=== PATIENT | male | born 1950 | race Caucasian/White ===

== ENCOUNTER 2017-06-17 06:49 | Day surgery (SDC) | payer OTHER ==
[~2017-06-17] VITALS: Ht 177.8 cm; Wt 131.5 kg
[~2017-06-17 06:49] MED LIST: /ESOM40CA; /TAMS4CA; ASPI325T; ASPI81TA63; ASPI81TA83; ASPI81TA85 PO; ATEN50TA2; ATEN50TA2 PO; ATOR40TA75 PO; FENO145T PO; FLOM5CAP PO; GLUC1000; INVO300T PO; JANU100T PO; LIPI10TA; LOPR1TAB6 PO; LOPR1TAB7 PO; METF10004 PO; NEXI40GR PO; NITR0.4S; NITR4TASL SL; PLAV75TA2; RAMI25CA; RAMI5CA PO; TENO50TA
[2017-06-17] MEDS ORDERED: LR 1,000 ML IV SCH ×2 (07:00→13:30)
[2017-06-17] MEDS ORDERED: ROCURONIUM BROMIDE 50 MG/5 ML VIAL/SYRINGE As Ordered ONE ×2 (07:03→11:23)
[2017-06-17] MEDS ORDERED: PROPOFOL 200 MG/20 ML VIAL As Ordered ONE (07:03)
[2017-06-17] MEDS ORDERED: MIDAZOLAM INJ 2 MG/2 ML VIAL (J2250) As Ordered ONE (07:04)
[2017-06-17] MEDS ORDERED: fentaNYL 100 MCG/2 ML INJECTION (J3010) As Ordered ONE (07:04)
[2017-06-17] MEDS ORDERED: LIDOCAINE 2% INJ 100 MG/5 ML SDV (FOR ANES.) As Ordered ONE (07:04)
[2017-06-17] MEDS ORDERED: BACITRACIN OINT 30GM As Ordered ONE (10:57)
[2017-06-17] MEDS ORDERED: ETOMIDATE INJ 20MG/10ML VIAL As Ordered ONE (11:23)
[2017-06-17] MEDS ORDERED: ceFAZolin 2 GM/D5W 50 ML IV BAG (J0690) As Ordered ONE (11:37)
[2017-06-17] MEDS ORDERED: PHENYLephrine HCL 500 MCG/5 ML (100MCG/ML) SYRINGE (J2370) As Ordered ONE (11:57)
[2017-06-17] MEDS ORDERED: HYDROmorphone HCL 2 MG/ML 1ML VIAL (J1170) As Ordered ONE (11:57)
[2017-06-17] MEDS ORDERED: SUGAMMADEX SODIUM 500 MG/5 ML VIAL (BRIDION) As Ordered ONE (12:16)
[2017-06-17] MEDS ORDERED: PERCOCET 5MG/325MG TAB As Ordered ONE (13:01)
[2017-06-17] MEDS ORDERED: MEPERIDINE INJ 25 MG/ML VIAL (J2175) IV PRN (13:30)
[2017-06-17] MEDS ORDERED: ONDANSETRON 4MG/2ML VIAL (J2405) IV PRN (13:30)
[2017-06-17] MEDS ORDERED: fentaNYL 100 MCG/2 ML INJECTION (J3010) IV PRN (13:30)
[2017-06-17] MEDS ORDERED: METOCLOPRAMIDE INJ 10MG/2ML VIAL (J2765) IV PRN (13:30)
[2017-06-17] MEDS ORDERED: PERCOCET 5MG/325MG TAB PO PRN ×3 (13:30)
[2017-06-17 14:15] VITALS: BP 128/74
--- NOTE | 2017-06-18 20:03 | RO ---
DATE OF PROCEDURE: 06/17/2017 PREPROCEDURE DIAGNOSIS: Phimosis. POSTPROCEDURE DIAGNOSIS: Phimosis. PROCEDURE: Circumcision. SURGEON: Dr. Vickey Louis CREW TRAINER: None ANESTHESIA: General. OPERATIVE INDICATIONS: This is a 67-year-old male who has complained of difficulty retracting his foreskin due to worsening phimosis. It was recommended he be brought to the operating room today for the above listed procedure. DESCRIPTION OF PROCEDURE: The patient was brought to the operating room and general anesthesia was induced. Prophylactic antibiotics were infused. He was then placed in the supine position and prepped and draped in the usual sterile fashion. At this point, circumcising incisions were made around the penis with the first one just proximal to the coronal sulcus with the foreskin completely retracted. A second circumcising incision was made on the skin at the level of the coronal sulcus with the foreskin in normal position over the glans. These two circumcising incisions were then connected using Bovie electrocautery. All the foreskin between the two incisions was then removed using Bovie electrocautery. At this point, we checked for hemostasis and any areas of bleeding were controlled with cautery. We then began to reapproximate the skin of the shaft to the glans beginning first with a #3-0 chromic U-stitch at the 6 o'clock position. We then placed several interrupted stitches using #3-0 chromic around the rest of the of the penis until the skin was completely reapproximated to the glans. Once this was done, dressings were applied, beginning first with bacitracin ointment around the incision line and then a Rachel dressing, followed by a Coban dressing. Once dressings were placed, this marked the conclusion of the procedure. The patient was then awakened from anesthesia and transported to the recovery room in stable condition. Estimated blood loss was 5 mL. Complications: None. Specimens: Foreskin. Plan: The patient will take the dressings off in 2 days. He will followup with me in the clinic in approximately 3 weeks. NAT
== END 2017-06-17 14:30 | disposition home or self-care (01) ==
LOC: M SDC 06:49
PROVIDERS: ATTEND Urology
DX: N47.1 Phimosis (principal); I20.9 Angina pectoris, unspecified; I10 Essential (primary) hypertension; E78.5 Hyperlipidemia, unspecified; K21.9 Gastro-esophageal reflux disease without esophagitis; E11.9 Type 2 diabetes mellitus without complications; Z79.82 Long term (current) use of aspirin; I25.2 Old myocardial infarction; I25.10 Atherosclerotic heart disease of native coronary artery without angina pectoris; Z79.899 Other long term (current) drug therapy; Z87.891 Personal history of nicotine dependence; Z92.3 Personal history of irradiation; Z85.46 Personal history of malignant neoplasm of prostate
CPT/HCPCS: 54161; 88304; J0690; J1170; J2250; J2370; J3010

== ENCOUNTER → 2017-07-08 | Outpatient (REF) | payer OTHER | LOC: M SMT 13:14 | PROVIDERS: ATTEND Urology | DX: R30.0 Dysuria (principal) ==

== ENCOUNTER 2022-01-14 11:33 | Emergency (ER) | payer OTHER ==
[~2022-01-14] VITALS: Ht 177.8 cm; Wt 55.9 kg
[~2022-01-14 11:33] MED LIST changes: -/ESOM40CA; -/TAMS4CA; +ASPI81TA26 PO; -ASPI81TA85 PO; +ASPI81TA86 PO; +ATOR80TA59; +BASA100I SC; +CETI-24; +DULA3PEN; +ENTR1TAB7; -FENO145T PO; +FENO145T7 PO; +FLOM0.4C39; +FLOM0.4C39 PO; -FLOM5CAP PO; +FLON1SPR; +FLUT1BLS8; +GLIP10TA18; +INCR1INH; +METO1TAB33; +NEXI1CAP3; +PANT40TA29; +RAMI1CAP24 PO; -RAMI5CA PO; +SYMB16INH; +VENTAER INH
[2022-01-14 12:25] LABS: BASO # 0.1 10^3/uL (0.0-0.2); BASO % 0.7 % (0.0-1.0); EOS % 0.3 % (0.0-3.0); HEMATOCRIT 45.4 % (42.0-52.0); HEMOGLOBIN 13.6 g/dl (13.5-17.5); LYMPH % 12.9 % (24.0-44.0); MEAN CORPUSCULAR HEMOGLOBIN 22.5 pg (27.0-33.0); MEAN CORPUSCULAR VOLUME 75.2 fl (80.0-96.0); MONO # 0.4 10^3/uL (0.0-0.8); MONO % 5.7 % (2.0-8.0); NEUTROPHILS # 5.9 10^3/uL (1.5-8.5); NEUTROPHILS % 79.9 % (36.0-66.0); PLATELET COUNT, AUTOMATED 314 10^3/uL (150-450); RED BLOOD COUNT 6.04 10^6/uL (4.30-6.10); WHITE BLOOD COUNT 7.4 10^3/uL (4.0-10.0)
[2022-01-14 12:40] LABS: ABG BASE EXCESS -4.5 (-2.0-2.0); ABG HCO3 18.9 MEQ/L (22.0-26.0); ABG O2 SATURATION 92.7 % (95.0-99.0); ABG PARTIAL PRESSURE CO2 30.6 mmHg (35.0-45.0); ABG PARTIAL PRESSURE O2 65.8 mmHg (75.0-100.0); ABG STANDARD HCO3 20.7 MEQ/L (22.0-26.0); ABG TOTAL CO2 19.9 MEQ/L (23.0-31.0); ABG pH (ARTERIAL) 7.409 UNITS (7.350-7.450)
[2022-01-14] MEDS ORDERED: FUROSEMIDE 40MG/4ML VIAL (J1940) IV ONE (12:50)
[2022-01-14 13:01] LABS: CK-MB VALUE MASS 3.6 NG/ML (<3.6); MB/CK RELATIVE INDEX 3.3 (< OR =4)
[2022-01-14 13:08] LABS: ALT/SGPT 22 U/L (12-78); BILIRUBIN,DIRECT 0.2 MG/DL (0.0-0.2); BILIRUBIN,TOTAL 0.6 MG/DL (0.2-1.0); BLOOD UREA NITROGEN 26 MG/DL (7-18); CALCIUM LEVEL 8.7 MG/DL (8.8-10.2); CARBON DIOXIDE LEVEL 24 MEQ/L (21-32); CHLORIDE LEVEL 111 MEQ/L (98-107); GLOMERULAR FILTRATION RATE > 60.0 (>42); GLUCOSE, FASTING 71 MG/DL (70-100); NT-PRO BNP 6365 PG/ML (<125); POTASSIUM SERUM 3.9 MEQ/L (3.5-5.1); SODIUM LEVEL 142 MEQ/L (136-145); TOTAL PROTEIN 6.2 GM/DL (6.4-8.2)
[2022-01-14 13:53] LABS: CK-MB VALUE MASS 3.2 NG/ML (<3.6); MB/CK RELATIVE INDEX 3.14 (< OR =4)
[2022-01-14] MEDS ORDERED: ASPIRIN 81 MG CHEW TABLET PO ONE (14:05)
[2022-01-14 15:52] VITALS: BP 126/80
== END 2022-01-14 15:55 | disposition short-term general hospital (02) ==
LOC: EDBD 11:33 → M ED 11:33
DX: I21.4 Non-ST elevation (NSTEMI) myocardial infarction (principal); G47.33 Obstructive sleep apnea (adult) (pediatric); E11.9 Type 2 diabetes mellitus without complications; I10 Essential (primary) hypertension; Z87.891 Personal history of nicotine dependence
CPT/HCPCS: 36600; 71045; 80047; 80048; 80076; 82550; 82553; 82803; 83880; 84443; 84484; 85025; 87040; 87486; 87581; 87633; 87798; 93005; 93041; 96374; 99285; J1940

== ENCOUNTER → 2022-06-19 | Outpatient (CLI) | payer OTHER ==
[~2022-06-19] MED LIST changes: +AMIO200T49; +BIMA01SOL; +BISO5TAB14; +CEPH500C PO; +CLOP75TA2; +ELIQ5TAB; +ERGO500029; +SPIR-10; +SYNT25TA
== END ==
LOC: M RAD 09:33
PROVIDERS: ATTEND Physician Assistant
DX: R91.1 Solitary pulmonary nodule (principal); J90 Pleural effusion, not elsewhere classified; Z87.891 Personal history of nicotine dependence

== ENCOUNTER 2022-06-21 09:35 | Emergency (ER) | payer OTHER ==
[~2022-06-21] VITALS: Ht 177.8 cm; Wt 107.0 kg
[~2022-06-21 09:35] MED LIST changes: -AMIO200T49; -BIMA01SOL; -BISO5TAB14; -CEPH500C PO; -CLOP75TA2; -ELIQ5TAB; -ERGO500029; -SPIR-10; -SYNT25TA
[2022-06-21] MEDS ORDERED: BIMA01SOL (10:03)
[2022-06-21] MEDS ORDERED: BISO5TAB14 (10:03)
[2022-06-21] MEDS ORDERED: SPIR-10 (10:03)
[2022-06-21] MEDS ORDERED: ELIQ5TAB (10:03)
[2022-06-21] MEDS ORDERED: CLOP75TA2 (10:03)
[2022-06-21] MEDS ORDERED: ERGO500029 (10:03)
[2022-06-21] MEDS ORDERED: AMIO200T49 (10:03)
[2022-06-21] MEDS ORDERED: SYNT25TA (10:03)
[2022-06-21 12:03] LABS: BACTERIA, URINE SMALL AMOUNT; HYALINE CAST, URINE NONE SEEN /lpf (0-1); RBC, URINE TNTC /hpf (0-3); SQUAMOUS EPITHELIAL CELL URINE SMALL AMOUNT /hpf (SMALL AMT)
[2022-06-21 12:28] LABS: BASO # 0.1 10^3/uL (0.0-0.2); BASO % 0.4 % (0.0-1.0); EOS % 0.4 % (0.0-3.0); HEMATOCRIT 44.4 % (42.0-52.0); HEMOGLOBIN 13.9 g/dl (13.5-17.5); LYMPH # 0.9 10^3/uL (1.5-5.0); LYMPH % 8.3 % (24.0-44.0); MEAN CORPUSCULAR HEMOGLOBIN 28.4 pg (27.0-33.0); MEAN CORPUSCULAR HGB CONC 31.3 g/dl (32.0-36.5); MEAN CORPUSCULAR VOLUME 90.6 fl (80.0-96.0); MONO # 0.6 10^3/uL (0.0-0.8); MONO % 5.2 % (2.0-8.0); NEUTROPHILS # 9.5 10^3/uL (1.5-8.5); NEUTROPHILS % 85.1 % (36.0-66.0); PLATELET COUNT, AUTOMATED 255 10^3/uL (150-450); WHITE BLOOD COUNT 11.2 10^3/uL (4.0-10.0)
[2022-06-21 12:40] LABS: INR 1.34
[2022-06-21 12:41] LABS: PARTIAL THROMBOPLASTIN TIME 36.6 SECONDS (25.9-37.0)
[2022-06-21] MEDS ORDERED: ISOVUE-370 76% 100ML VIAL As Ordered ONE (12:43)
[2022-06-21 13:04] LABS: ALBUMIN 3.2 GM/DL (3.2-5.2); BILIRUBIN,DIRECT 0.2 MG/DL (0.0-0.2); BILIRUBIN,TOTAL 0.7 MG/DL (0.2-1.0); TOTAL PROTEIN 6.6 GM/DL (6.4-8.2)
[2022-06-21] MEDS ORDERED: CEPH500C PO (14:06)
[2022-06-21 14:32] VITALS: BP 98/55
== END 2022-06-21 14:33 | disposition home or self-care (01) ==
LOC: M ED 11:38
DX: R31.9 Hematuria, unspecified (principal); I48.91 Unspecified atrial fibrillation; I25.2 Old myocardial infarction; N39.0 Urinary tract infection, site not specified; R93.5 Abnormal findings on diagnostic imaging of other abdominal regions, including retroperitoneum; K76.0 Fatty (change of) liver, not elsewhere classified; K42.9 Umbilical hernia without obstruction or gangrene; E11.9 Type 2 diabetes mellitus without complications; I10 Essential (primary) hypertension; E78.5 Hyperlipidemia, unspecified; J44.9 Chronic obstructive pulmonary disease, unspecified; E03.9 Hypothyroidism, unspecified; Z79.01 Long term (current) use of anticoagulants
CPT/HCPCS: 74177; 80047; 80076; 81000; 81015; 85025; 85610; 85730; 87088; 87186; 99284; Q9967

== ENCOUNTER 2022-07-19 09:19 | Emergency (ER) | payer OTHER ==
[~2022-07-19 09:19] MED LIST changes: +AMIO200T49; +BIMA01SOL; +BISO5TAB14; +CEPH500C PO; +CLOP75TA2; +ELIQ5TAB; +ERGO500029; +SPIR-10; +SYNT25TA
[2022-07-19 09:53] LABS: BASO % 0.4 % (0.0-1.0); EOS % 0.4 % (0.0-3.0); HEMATOCRIT 41.8 % (42.0-52.0); LYMPH # 0.8 10^3/uL (1.5-5.0); LYMPH % 9.1 % (24.0-44.0); MEAN CORPUSCULAR HEMOGLOBIN 28.1 pg (27.0-33.0); MEAN CORPUSCULAR HGB CONC 31.1 g/dl (32.0-36.5); MEAN CORPUSCULAR VOLUME 90.3 fl (80.0-96.0); MONO # 0.4 10^3/uL (0.0-0.8); MONO % 4.4 % (2.0-8.0); NEUTROPHILS # 7.8 10^3/uL (1.5-8.5); NEUTROPHILS % 85.2 % (36.0-66.0); PLATELET COUNT, AUTOMATED 213 10^3/uL (150-450); RED BLOOD COUNT 4.63 10^6/uL (4.30-6.10); WHITE BLOOD COUNT 9.2 10^3/uL (4.0-10.0)
[2022-07-19 10:07] LABS: INR 1.33; PROTHROMBIN TIME 16.9 SECONDS (12.7-14.5)
[2022-07-19] MEDS ORDERED: NS 500 ML IV ONE ×2 (10:20→11:00)
[2022-07-19] MEDS ORDERED: ISOVUE-370 76% 100ML VIAL As Ordered ONE (10:21)
[2022-07-19 10:26] LABS: RSV AMPLIFICATION NEGATIVE (NEGATIVE)
[2022-07-19 10:32] LABS: ALT/SGPT 27 U/L (12-78); BILIRUBIN,DIRECT 0.2 MG/DL (0.0-0.2); BILIRUBIN,TOTAL 0.5 MG/DL (0.2-1.0); BLOOD UREA NITROGEN 24 MG/DL (7-18); CALCIUM LEVEL 8.7 MG/DL (8.8-10.2); CARBON DIOXIDE LEVEL 25 MEQ/L (21-32); CHLORIDE LEVEL 110 MEQ/L (98-107); CREATININE FOR GFR 1.21 MG/DL (0.70-1.30); GLOMERULAR FILTRATION RATE > 60.0 (>42); GLUCOSE, FASTING 100 MG/DL (70-100); LIPASE 78 U/L (73-393); POTASSIUM SERUM 4.2 MEQ/L (3.5-5.1); SODIUM LEVEL 139 MEQ/L (136-145); TOTAL PROTEIN 6.1 GM/DL (6.4-8.2)
[2022-07-19 10:33] LABS: MB/CK RELATIVE INDEX 2.27 (< OR =4)
[2022-07-19 11:37] LABS: CK-MB VALUE MASS 2.2 NG/ML (<3.6); MB/CK RELATIVE INDEX 2.75 (< OR =4)
[2022-07-19 13:00] LABS: FREE T4 1.28 NG/DL (0.76-1.46); NT-PRO BNP 6928 PG/ML (<125)
[2022-07-19 13:33] LABS: CK-MB VALUE MASS 2.6 NG/ML (<3.6); MB/CK RELATIVE INDEX 3.17 (< OR =4)
[2022-07-19] MEDS ORDERED: PERCOCET 5MG/325MG TAB PO ONE (17:50)
[2022-07-19 19:26] VITALS: BP 106/54
== END 2022-07-19 19:28 | disposition short-term general hospital (02) ==
LOC: M ED 09:19 → EDBD 09:19 → M ED 19:28
DX: I20.0 Unstable angina (principal); J98.11 Atelectasis; I48.91 Unspecified atrial fibrillation; I11.9 Hypertensive heart disease without heart failure; E78.5 Hyperlipidemia, unspecified; E11.9 Type 2 diabetes mellitus without complications; J44.9 Chronic obstructive pulmonary disease, unspecified; I25.2 Old myocardial infarction; Z95.5 Presence of coronary angioplasty implant and graft; Z87.891 Personal history of nicotine dependence; Z79.01 Long term (current) use of anticoagulants; Z79.899 Other long term (current) drug therapy; Z79.84 Long term (current) use of oral hypoglycemic drugs; Z79.82 Long term (current) use of aspirin
CPT/HCPCS: 71045; 71275; 80047; 80048; 80076; 82550; 82553; 83690; 83880; 84439; 84443; 84484; 85025; 85610; 85730; 87631; 93005; 93041; 94760; 96360; 96361; 99285; Q9967

== ENCOUNTER → 2022-10-30 | Outpatient (CLI) | payer OTHER | LOC: M RAD 10:04 | PROVIDERS: ATTEND Internal Medicine Pulmonary Disease | DX: R91.8 Other nonspecific abnormal finding of lung field (principal) ==

== ENCOUNTER 2022-11-14 16:44 | Observation (INO) | payer OTHER ==
[~2022-11-14] VITALS: Ht 177.8 cm; Wt 113.0 kg
[~2022-11-14 16:44] MED LIST changes: -AMIO200T49; +AMIO200T49 PO; -ATOR80TA59; +ATOR80TA59 PO; -BIMA01SOL; +BIMA01SOL OU; -BISO5TAB14; +BISO5TAB14 PO; -CETI-24; +CETI-24 PO; -CLOP75TA2; +CLOP75TA2 PO; -DULA3PEN; +DULA3PEN SQ; -ELIQ5TAB; +ELIQ5TAB PO; -ENTR1TAB7; +ENTR1TAB7 PO; -ERGO500029; +ERGO500029 PO; -FLON1SPR; +FLON1SPR NARES; -FLUT1BLS8; +FLUT1BLS8 INH; -GLIP10TA18; +GLIP10TA18 PO; -PANT40TA29; +PANT40TA29 PO; -SPIR-10; +SPIR-10 PO
[2022-11-14] MEDS ORDERED: IPRATROPIUM 0.5MG/ALBUTEROL 2.5MG INH SOL UD 3ML (DUONEB) NEB ONE (17:05)
[2022-11-14 17:07] LABS: VENOUS BASE EXCESS -13.3 (-2.0-2.0); VENOUS HCO3 15.2 MEQ/L (23.0-27.0); VENOUS O2 SATURATION 87.5 % (60.0-80.0); VENOUS PARTIAL PRESSURE CO2 45.2 mmHg (38.0-50.0); VENOUS PARTIAL PRESSURE O2 71.9 mmHg (30.0-50.0); VENOUS PH 7.145 UNITS (7.330-7.430); VENOUS TOTAL CO2 16.6 MEQ/L (24.0-28.0)
[2022-11-14 17:15] LABS: BASO # 0.1 10^3/uL (0.0-0.2); EOS # 0.1 10^3/uL (0.0-0.5); EOS % 0.8 % (0.0-3.0); HEMATOCRIT 41.2 % (42.0-52.0); HEMOGLOBIN 12.2 g/dl (13.5-17.5); LYMPH # 1.4 10^3/uL (1.5-5.0); LYMPH % 15.6 % (24.0-44.0); MEAN CORPUSCULAR HEMOGLOBIN 25.1 pg (27.0-33.0); MEAN CORPUSCULAR HGB CONC 29.6 g/dl (32.0-36.5); MEAN CORPUSCULAR VOLUME 84.6 fl (80.0-96.0); MONO # 0.5 10^3/uL (0.0-0.8); MONO % 5.1 % (2.0-8.0); NEUTROPHILS # 6.7 10^3/uL (1.5-8.5); NEUTROPHILS % 75.5 % (36.0-66.0); PLATELET COUNT, AUTOMATED 301 10^3/uL (150-450); RED BLOOD COUNT 4.87 10^6/uL (4.30-6.10); WHITE BLOOD COUNT 8.8 10^3/uL (4.0-10.0)
[2022-11-14] MEDS ORDERED: FARX1TAB5 PO (17:32)
[2022-11-14] MEDS ORDERED: SYNT75TA PO (17:32)
[2022-11-14 17:40] LABS: MAGNESIUM LEVEL 2.1 MG/DL (1.8-2.4)
[2022-11-14 17:41] LABS: CALCIUM LEVEL 8.9 MG/DL (8.3-10.6); GLOMERULAR FILTRATION RATE 35.3 (>42); POTASSIUM SERUM 5.3 MMOL/L (3.5-5.1)
[2022-11-14 17:44] LABS: FREE T4 1.31 NG/DL (0.89-1.76); THYROID STIMULATING HORMONE 12.689 uIU/ML (0.55-4.78)
[2022-11-14] MEDS ORDERED: NS 500 ML IV ONE ×2 (17:50→19:35)
[2022-11-14 18:22] LABS: BILIRUBIN,DIRECT 0.2 MG/DL (<0.4); BILIRUBIN,TOTAL 0.4 MG/DL (0.3-1.2); TOTAL PROTEIN 6.5 G/DL (5.7-8.2)
[2022-11-14] MEDS ORDERED: INCR1INH INH (18:57)
[2022-11-14] MEDS ORDERED: BUDE0.254 INH (18:57)
[2022-11-14] MEDS ORDERED: MAGN400C2 PO (18:57)
[2022-11-14] MEDS ORDERED: IPRA0.00 INH (18:57)
[2022-11-14] MEDS ORDERED: FERR150C PO (18:57)
[2022-11-14] MEDS ORDERED: FURO40TA2 PO (18:57)
[2022-11-14] MEDS ORDERED: LEVO50TA45 PO (18:57)
[2022-11-14] MEDS ORDERED: HOME MED LIST COMPLETE! XX SCH (19:00)
[2022-11-14] MEDS ORDERED: FLUTICASONE PROP 0.05% NASAL SPRAY 16 GM (FLONASE) NARES PRN (19:35)
[2022-11-14] MEDS ORDERED: ALBUTEROL 90 MCG/ACT 8GM HFA INHALER INH PRN (19:35)
[2022-11-14] MEDS ORDERED: NITROGLYCERIN 0.4MG SUBL TABLET SL PRN (19:35)
[2022-11-14] MEDS ORDERED: IPRATROPIUM 0.5MG/ALBUTEROL 2.5MG INH SOL UD 3ML (DUONEB) INH PRN (19:35)
[2022-11-14] MEDS ORDERED: GLUCAGON INJ 1MG VIAL SC PRN (19:40)
[2022-11-14] MEDS ORDERED: DEXTROSE 50% 50ML SYRINGE IV PRN (19:40)
[2022-11-14] MEDS ORDERED: GLUCOSE 4GM CHEW TABLET PO PRN (19:40)
[2022-11-14] MEDS: ADVAIR HFA 115/21MCG INHALER INH SCH (20:00)
[2022-11-14] MEDS: BUDESONIDE 0.25 MG/2 ML INHALATION SUSPENSION INH SCH (20:00)
[2022-11-14] MEDS: TAMSULOSIN 0.4 MG CAP PO SCH (22:30)
[2022-11-14] MEDS: APIXABAN 5 MG TAB (ELIQUIS) PO SCH (22:30)
[2022-11-14] MEDS: INSULIN LISPRO (NovoLOG) PER UNIT SC SCH (22:31)
[2022-11-14] MEDS: ATORVASTATIN 20 MG TAB PO SCH (22:32)
[2022-11-14 23:07] LABS: OSMOLALITY URINE 618 MOSM/KG (50-1400)
[2022-11-14 23:08] LABS: APPEARANCE, URINE MANUAL CLOUDY (CLEAR); COLOR, URINE MANUAL LT YELLOW (YELLOW)
[2022-11-14 23:09] LABS: BILIRUBIN, URINE MANUAL NEGATIVE (NEGATIVE); GLUCOSE, URINE (UA) MANUAL 4+(1000 MG/DL) mg/dL (NEGATIVE); KETONE, URINE MANUAL NEGATIVE (NEGATIVE); NITRITE, URINE MANUAL NEGATIVE (NEGATIVE); PROTEIN, URINE MANUAL 1+ mg/dL (NEGATIVE); UROBILINOGEN, URINE MANUAL NORMAL (NORMAL)
[2022-11-14 23:10] LABS: BLOOD URINE MANUAL POSITIVE (NEGATIVE); LEUKOCYTE ESTERASE, URINE MAN POSITIVE (NEGATIVE)
[2022-11-14 23:17] LABS: SODIUM,RANDOM URINE 36 MMOL/L
[2022-11-14 23:18] LABS: WBC, URINE TNTC /hpf (0-3)
[2022-11-14 23:20] LABS: BACTERIA, URINE LARGE AMOUNT; SQUAMOUS EPITHELIAL CELL URINE NONE SEEN /hpf (SMALL AMT)
[2022-11-14 23:21] LABS: HYALINE CAST, URINE NONE SEEN /lpf (0-1)
[2022-11-14 23:22] LABS: TOTAL PROTEIN,RANDOM URINE 45.5 MG/DL (0.0-14.0)
[2022-11-14 23:27] LABS: CREATININE,RANDOM URINE 86.3 MG/DL
[2022-11-15] VITALS (21 sets, daily range): BP systolic 78–105; BP diastolic 46–70; O2SAT 83–95
[2022-11-15] MEDS: ENTRESTO 49-51MG TABLET (SACUBITRIL/VALSARTAN) PO SCH ×3 (02:42→11:06)
[2022-11-15] MEDS: LATANOPROST 0.005% OPHTH SOLN 2.5 ML OU SCH ×2 (02:43→21:43)
[2022-11-15] MEDS: FENOFIBRATE 145MG TABLET (TRICOR) PO SCH ×2 (02:43→21:43)
[2022-11-15] MEDS: LEVOTHYROXINE 50MCG TABLET (0.05MG) PO SCH (05:05)
[2022-11-15 06:24] LABS: HEMATOCRIT 39.4 % (42.0-52.0); MEAN CORPUSCULAR HEMOGLOBIN 25.1 pg (27.0-33.0); MEAN CORPUSCULAR HGB CONC 30.5 g/dl (32.0-36.5); MEAN CORPUSCULAR VOLUME 82.4 fl (80.0-96.0); PLATELET COUNT, AUTOMATED 282 10^3/uL (150-450); RED BLOOD COUNT 4.78 10^6/uL (4.30-6.10)
[2022-11-15 06:42] LABS: INR 1.7; PROTHROMBIN TIME 20.3 SECONDS (12.5-14.5)
[2022-11-15 06:43] LABS: PARTIAL THROMBOPLASTIN TIME 33.5 SECONDS (24.8-34.2)
[2022-11-15 06:49] LABS: MAGNESIUM LEVEL 1.9 MG/DL (1.8-2.4)
[2022-11-15 06:51] LABS: BILIRUBIN,TOTAL 0.5 MG/DL (0.3-1.2); CALCIUM LEVEL 8.9 MG/DL (8.3-10.6); CREATININE FOR GFR 1.79 MG/DL (0.70-1.30); GLOMERULAR FILTRATION RATE 40.2 (>42); POTASSIUM SERUM 4.4 MMOL/L (3.5-5.1); TOTAL PROTEIN 6.4 G/DL (5.7-8.2)
[2022-11-15] MEDS: INSULIN LISPRO (NovoLOG) PER UNIT SC SCH ×4 (07:30→21:00)
[2022-11-15] MEDS: BUDESONIDE 0.25 MG/2 ML INHALATION SUSPENSION INH SCH ×2 (08:00→20:33)
[2022-11-15] MEDS: ADVAIR HFA 115/21MCG INHALER INH SCH ×2 (08:35→20:33)
[2022-11-15] MEDS: TIOTROPIUM INHALER/CAPSULE (SPIRIVA) INH SCH (08:35)
[2022-11-15] MEDS: MOM 30ML SUSPENSION UDC PO SCH (09:00)
[2022-11-15] MEDS ORDERED: bisoproloL fumarate 5 MG TAB PO SCH (09:00)
[2022-11-15] MEDS: APIXABAN 5 MG TAB (ELIQUIS) PO SCH ×2 (10:07→21:29)
[2022-11-15] MEDS: AMIODARONE 200 MG TAB (PACERONE) PO SCH (10:07)
[2022-11-15] MEDS: CLOPIDOGREL 75 MG TAB PO SCH (10:07)
[2022-11-15] MEDS: CETIRIZINE (ZyrTEC) 10 MG TAB PO SCH (10:07)
[2022-11-15] MEDS: PANTOPRAZOLE 40MG TAB (PROTONIX) PO SCH (10:07)
[2022-11-15] MEDS: BISOPROLOL FUM 2.5 MG PER 1/2TAB PO SCH (11:06)
[2022-11-15] MEDS ORDERED: BISO5TAB14 PO (12:00)
[2022-11-15] MEDS ORDERED: FURO40TA2 PO ×2 (12:09→12:10)
[2022-11-15] MEDS ORDERED: SENOKOT S TAB PO PRN (14:30)
[2022-11-15] MEDS: ACETAMINOPHEN TAB 650MG DOSE (2X325MG) PO PRN (15:34)
[2022-11-15] MEDS: ENTRESTO 24-26MG TABLET (SACUBITRIL/VALSARTAN) PO SCH (21:00)
[2022-11-15] MEDS: TAMSULOSIN 0.4 MG CAP PO SCH (21:29)
[2022-11-15] MEDS: ATORVASTATIN 20 MG TAB PO SCH (21:29)
[2022-11-15] MEDS ORDERED: LIDOCAINE 5% (LIDODERM) PATCH TD ONE (23:00)
[2022-11-16] VITALS (10 sets, daily range): BP systolic 82–113; BP diastolic 51–73; O2SAT 77–94
[2022-11-16] MEDS: ACETAMINOPHEN TAB 650MG DOSE (2X325MG) PO PRN ×3 (00:33→12:20)
[2022-11-16] MEDS ORDERED: SODIUM CHLORIDE NASAL 0.65% SPRAY BTL (OCEAN) PRN (04:00)
[2022-11-16 04:23] LABS: HEMATOCRIT 38.6 % (42.0-52.0); MEAN CORPUSCULAR HEMOGLOBIN 25.2 pg (27.0-33.0); MEAN CORPUSCULAR HGB CONC 31.1 g/dl (32.0-36.5); MEAN CORPUSCULAR VOLUME 81.1 fl (80.0-96.0); PLATELET COUNT, AUTOMATED 279 10^3/uL (150-450); RED BLOOD COUNT 4.76 10^6/uL (4.30-6.10); WHITE BLOOD COUNT 9.5 10^3/uL (4.0-10.0)
[2022-11-16 04:46] LABS: ALBUMIN 3.1 G/DL (3.2-5.2); BILIRUBIN,TOTAL 0.4 MG/DL (0.3-1.2); CALCIUM LEVEL 9.1 MG/DL (8.3-10.6); CREATININE FOR GFR 1.72 MG/DL (0.70-1.30); GLOMERULAR FILTRATION RATE 42.1 (>42); POTASSIUM SERUM 4.7 MMOL/L (3.5-5.1); TOTAL PROTEIN 6.5 G/DL (5.7-8.2)
[2022-11-16] MEDS: LEVOTHYROXINE 50MCG TABLET (0.05MG) PO SCH (05:37)
[2022-11-16] MEDS: INSULIN LISPRO (NovoLOG) PER UNIT SC SCH ×2 (07:30→12:19)
[2022-11-16] MEDS: BUDESONIDE 0.25 MG/2 ML INHALATION SUSPENSION INH SCH (08:00)
[2022-11-16] MEDS: ADVAIR HFA 115/21MCG INHALER INH SCH (08:09)
[2022-11-16] MEDS: TIOTROPIUM INHALER/CAPSULE (SPIRIVA) INH SCH (08:09)
[2022-11-16] MEDS: MOM 30ML SUSPENSION UDC PO SCH ×2 (08:54→09:00)
[2022-11-16] MEDS: CLOPIDOGREL 75 MG TAB PO SCH (08:54)
[2022-11-16] MEDS: ENTRESTO 24-26MG TABLET (SACUBITRIL/VALSARTAN) PO SCH (08:55)
[2022-11-16] MEDS: CETIRIZINE (ZyrTEC) 10 MG TAB PO SCH (08:55)
[2022-11-16] MEDS: APIXABAN 5 MG TAB (ELIQUIS) PO SCH (08:55)
[2022-11-16] MEDS: AMIODARONE 200 MG TAB (PACERONE) PO SCH (08:55)
[2022-11-16] MEDS: PANTOPRAZOLE 40MG TAB (PROTONIX) PO SCH (08:55)
[2022-11-16] MEDS ORDERED: FUROSEMIDE 40 MG TAB PO SCH (09:00)
[2022-11-16] MEDS ORDERED: BISOPROLOL FUM 2.5 MG PER 1/2TAB PO SCH ×2 (09:00)
[2022-11-16] MEDS: BISOPROLOL FUM 2.5 MG PER 1/2TAB PO SCH (09:00)
[2022-11-16] MEDS ORDERED: FUROSEMIDE 40 MG TAB PO ONE (10:00)
[2022-11-16] MEDS ORDERED: ENTR1TAB PO (11:28)
[2022-11-16] MEDS ORDERED: DICL1GEL3 TOP (14:37)
[2022-11-16] MEDS ORDERED: ENTRESTO 49-51MG TABLET (SACUBITRIL/VALSARTAN) PO SCH (21:00)
== END 2022-11-16 15:11 | disposition home or self-care (01) ==
LOC: M ED 16:44 → EDBD 16:44 → M ED INP 19:33 → M PCU 11-15 04:40
PROVIDERS: ADMIT Family Medicine; ATTEND Family Medicine
DX: I50.20 Unspecified systolic (congestive) heart failure (principal); I25.10 Atherosclerotic heart disease of native coronary artery without angina pectoris; Z95.5 Presence of coronary angioplasty implant and graft; I48.91 Unspecified atrial fibrillation; J44.9 Chronic obstructive pulmonary disease, unspecified; E03.9 Hypothyroidism, unspecified; K21.9 Gastro-esophageal reflux disease without esophagitis; Z85.46 Personal history of malignant neoplasm of prostate; E11.9 Type 2 diabetes mellitus without complications; R55 Syncope and collapse; I11.0 Hypertensive heart disease with heart failure; E78.9 Disorder of lipoprotein metabolism, unspecified; N17.9 Acute kidney failure, unspecified; E87.20 Acidosis, unspecified; E87.5 Hyperkalemia; D45 Polycythemia vera; R07.81 Pleurodynia; R07.2 Precordial pain; Z99.81 Dependence on supplemental oxygen; Z92.3 Personal history of irradiation; I95.9 Hypotension, unspecified; K59.00 Constipation, unspecified; Z79.899 Other long term (current) drug therapy; Z79.01 Long term (current) use of anticoagulants; Z79.02 Long term (current) use of antithrombotics/antiplatelets; Z79.84 Long term (current) use of oral hypoglycemic drugs; Z79.890 Hormone replacement therapy; Z79.51 Long term (current) use of inhaled steroids; Z87.891 Personal history of nicotine dependence